=== PATIENT | male | born 1980 | race Caucasian/White ===

== ENCOUNTER 2016-11-05 23:04 | Emergency (ER) | payer SELFPAY ==
[~2016-11-05] VITALS: Ht 165.1 cm; Wt 83.0 kg
[2016-11-05 23:11] VITALS: Ht 165.1 cm; Wt 83.0 kg
== END 2016-11-06 02:01 | disposition left against medical advice (07) ==
LOC: FTE 23:04
DX: Z53.21 Procedure and treatment not carried out due to patient leaving prior to being seen by health care provider (principal)